=== PATIENT | male | born 2000 | race Caucasian/White ===

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

== ENCOUNTER 2023-04-01 10:01 | Emergency (ER) | payer MEDICAID ==
[~2023-04-01] VITALS: Ht 177.8 cm; Wt 100.0 kg
[2023-04-01] MEDS ORDERED: famotidine/PF 10 mg/ml inj IV PRN (10:10)
[2023-04-01] MEDS ORDERED: diphenhydrAMINE 50 mg/ml inj IV PRN (10:10)
[2023-04-01] MEDS ORDERED: dexamethasone sod phosphate 10mg/ml inj IV PRN (10:10)
--- NOTE | 2023-04-01 10:10 | NUR ---
dr. powers gave verbal med orders prn. Iv supplies in room. Pt does not want an IV, he reports he feels fine.
[2023-04-01 10:27] VITALS: BP 115/59; PULSE 97; RESP 20; TEMP 97.9; O2SAT 97
[2023-04-01] MEDS ORDERED: EPIN0.3P3 IM (11:49)
== END 2023-04-01 11:44 | disposition home or self-care (01) ==
LOC: ER 10:01
DX: T63.441A Toxic effect of venom of bees, accidental (unintentional), initial encounter (principal); R22.0 Localized swelling, mass and lump, head; Y92.89 Other specified places as the place of occurrence of the external cause
CPT/HCPCS: 96374; 96375; 99284; J1100; J3490